=== PATIENT | female | born 1935 | race Caucasian/White ===

== ENCOUNTER 2017-09-11 20:24 | Emergency (ER) | payer MEDICARE, BC ==
[2017-09-11] MEDS ORDERED: ONDANSETRON HCL 4 MG/2 ML SOL IV ONE (20:37)
[2017-09-11] MEDS ORDERED: THIAMINE 100 MG/ML 100 MG/ML SOL IV ONE (20:37)
[2017-09-11] MEDS ORDERED: DEXTROSE/SALINE 0.9% 1,000 ML IV SCH (20:45)
[2017-09-11] MEDS ORDERED: THIAMINE 100 MG/ML 100 MG/ML SOL ONE (20:45)
[2017-09-11 20:52] LABS: BASOPHILS % (AUTO) 1 % (0-3); EOSINOPHILS % (AUTO) 3 % (0-9); HEMATOCRIT 44 % (35-47); MEAN CORPUSCULAR HGB CONC 33.9 gm/dl (32.0-36.0); MEAN CORPUSCULAR VOLUME 95 fL (81-99); MONOCYTES % (AUTO) 10.5 % (0-12); NEUTROPHILS % (AUTO) 50.5 % (37-80)
[2017-09-11 20:53] VITALS: RESP 20; TEMP 97
[2017-09-11 21:04] LABS: ALBUMIN 3.5 gm/dl (3.4-5.0); BILIRUBIN,TOTAL 0.3 mg/dl (0.2-1.0); CALCIUM 8.5 mg/dl (8.5-10.1); CREATININE 1.2 mg/dl (0.60-1.00); POTASSIUM 3.5 mMol/L (3.5-5.1)
[2017-09-11 21:05] LABS: ALCOHOL 0.217 gm/dl (0.000-0.08)
[2017-09-11 21:15] VITALS: O2SAT 97
[2017-09-11 22:56] VITALS: BP 138/56; PULSE 54
== END 2017-09-11 22:41 | disposition home or self-care (01) | DRG 392 ==
LOC: ED 20:24
DX: R11.2 Nausea with vomiting, unspecified (principal); F10.10 Alcohol abuse, uncomplicated; Y90.1 Blood alcohol level of 20-39 mg/100 ml; R40.2132 Coma scale, eyes open, to sound, at arrival to emergency department; R40.2362 Coma scale, best motor response, obeys commands, at arrival to emergency department; R40.2252 Coma scale, best verbal response, oriented, at arrival to emergency department; W18.30XA Fall on same level, unspecified, initial encounter
CPT/HCPCS: 36415; 70450; 72125; 80053; 80307; 82150; 85025; 99285; J3411